=== PATIENT | male | born 1945 | race Caucasian/White ===

== ENCOUNTER 2018-06-01 12:25 | Emergency (ER) | payer OTHER ==
[2018-06-01 12:34] VITALS: BP 133/89
[2018-06-01] MEDS ORDERED: Ipratropium 0.5MG/2.5ML NEB* 0.5 MG/2.5 ML NEB.SOLN INH ONE (12:44)
[2018-06-01] MEDS ORDERED: Albuterol 2.5 MG/3 ML NEB.SOL* (0.083%) INH ONE (12:44)
[2018-06-01] MEDS ORDERED: Albuterol HFA INHALER* 8 gm MDI INH ONE (13:24)
[2018-06-01] MEDS ORDERED: predniSONE TAB* 20 MG PO ONE (13:25)
--- NOTE | 2018-06-01 13:28 | UC ---
Respiratory Complaint HPI - HPI Summary HPI Summary: The patient is a 72-year-old male with a remote history of asthma. Today he was trying to clean off some almaz books. Any attempted the vacuum them off his vacuum wallpaper cleaner opened up sprain dust around the room. He became acutely dyspneic after this occurred. He is much improved after taking some Zyrtec but still feels tight. - History of Current Complaint Chief Complaint: UCRespiratory Stated Complaint: ALLERGIC REACTION Time Seen by Provider: 06/01/18 12:37 Hx Obtained From: Patient Onset/Duration: Sudden Onset, Lasting Hours Timing: Constant Severity Initially: Severe Severity Currently: Moderate Pain Intensity: 0 Pain Scale Used: 0-10 Numeric Character: Cough: Nonproductive Aggravating Factors: Exertion, Deep Breaths Alleviating Factors: OTC Meds Associated Signs And Symptoms: Positive: Wheezing - Allergies/Home Medications Allergies/Adverse Reactions: Allergies Allergy/AdvReac Type Severity Reaction Status Date / Time No Known Allergies Allergy Verified 06/01/18 12:34 Home Medications: Home Medications metFORMIN* [Glucophage 850 MG TAB *] 1 tab PO DAILY 06/01/18 [History Confirmed 06/01/18] PMH/Surg Hx/FS Hx/Imm Hx Previously Healthy: Yes Endocrine History: Dyslipidemia - Surgical History Surgical History: Yes Surgery Procedure, Year, and Place: Heart cath 1990s. left leg surgery as a child for infection - Social History Alcohol Use: None Substance Use Type: None Smoking Status (MU): Never Smoked Tobacco Review of Systems Constitutional: Negative Skin: Negative Eyes: Negative ENT: Negative Respiratory: Shortness Of Breath, Cough Cardiovascular: Negative Gastrointestinal: Negative Genitourinary: Negative Motor: Negative Neurovascular: Negative Musculoskeletal: Negative Neurological: Negative Psychological: Negative Is Patient Immunocompromised?: No All Other Systems Reviewed And Are Negative: Yes Physical Exam Triage Information Reviewed: Yes Appearance: Well-Appearing, No Pain Distress, Well-Nourished Vital Signs: Initial Vital Signs Temp 99.9 F 06/01/18 12:30 Pulse 97 06/01/18 12:30 Resp 18 06/01/18 12:30 BP 133/89 06/01/18 12:30 Pulse Ox 97 06/01/18 12:30 Vital Signs Reviewed: Yes Eyes: Positive: Conjunctiva Clear ENT: Positive: Hearing grossly normal, Uvula midline. Negative: Nasal drainage , TMs normal, Trismus, Muffled voice, Hoarse voice Neck: Positive: Supple, Nontender Respiratory: Positive: No respiratory distress, No accessory muscle use, Wheezing - with forced expiration/poor air movement Cardiovascular: Positive: RRR, No Murmur Musculoskeletal: Positive: ROM Intact, No Edema Neurological: Positive: Alert Psychological Exam: Normal Skin Exam: Normal UC Diagnostic Evaluation - Laboratory O2 Sat by Pulse Oximetry: 97 - normal/not hypoxic Re-Evaluation - Re-Evaluation First Eval Re-Evaluation Time: 13:29 Change: Improved Comment: lungs clear/subjectively much improved Respiratory Course/Dx - Differential Dx/Diagnosis Provider Diagnoses: acute bronchospasm Discharge - Sign-Out/Discharge Documenting (check all that apply): Discharge/Admit/Transfer - Discharge Plan Condition: Stable Disposition: HOME Prescriptions: predniSONE [Deltasone 20 MG TAB] 40 mg PO DAILY #8 tab Patient Education Materials: Bronchospasm (ED) Referrals: Gene Mcbride MD [Primary Care Provider] - 1 Week Additional Instructions: recheck for new or worsening symptoms use inhaler as directed 2 puffs 4x day for 7 days - Billing Disposition and Condition Condition: STABLE Disposition: Home
== END 2018-06-01 13:45 | disposition home or self-care (01) ==
LOC: UCEAST 12:25
DX: J98.01 Acute bronchospasm (principal); J45.909 Unspecified asthma, uncomplicated
CPT/HCPCS: 99213; A9270-GY; G0463; J7512

== ENCOUNTER → 2019-01-30 13:55 | Emergency (ER) | payer OTHER ==
[~2019-01-30 13:55] MED LIST: Iodixanol* (CONTRAST) 320 MG/ML 100 ML SDV IV ONE; NS 0.9% 1000 ML** 1,000 ML IV ONE
--- NOTE | 2019-01-30 15:05 | ED ---
Neurological HPI - HPI Summary HPI Summary: Pt. is a 73 y.o male who presents to the ER for weakness to his left arm that started 1600 yesterday. Pt. states he was sitting, watching TV yesterday at 1600 when he felt his left arm "fall asleep." Pt. states he tried to lift up his left arm and it was very weak. Pt. states symptoms improved today but he still had mild weakness in left arm and saw his PCP who referred pt. to ED for further evaluation. Pt. denies vision changes, speech changes, H/A, SOB, fever , recent illness. Past medical hx of DM and HDL. Pt. takes a ASA 81mg on a daily basis. Symptoms are moderate in severity. No current modifying factors. - History of Current Complaint Chief Complaint: EDWeakness Stated Complaint: WEAKNESS Time Seen by Provider: 01/30/19 14:50 Hx Obtained From: Patient Pain Intensity: 3 - Allergy/Home Medications Allergies/Adverse Reactions: Allergies Allergy/AdvReac Type Severity Reaction Status Date / Time enviromental Allergy Eyes Uncoded 01/30/19 14:01 Itchy/Swollen/Red/Watery PMH/Surg Hx/FS Hx/Imm Hx Previously Healthy: Yes Endocrine/Hematology History: Reports: Hx Diabetes Cardiovascular History: Reports: Other Cardiovascular Problems/Disorders - high triglycerides Denies: Hx Hypertension Respiratory History: Reports: Hx Asthma - Not medicated for as child, Hx Sleep Apnea History: Reports: Hx Kidney Stones - minor - none now, Other Problems/ Disorders - current hematuria issue Denies: Hx Dialysis, Hx Renal Disease Sensory History: Reports: Hx Contacts or Glasses - glasses Denies: Hx Hearing Aid Opthamlomology History: Reports: Hx Contacts or Glasses - glasses - Surgical History Surgery Procedure, Year, and Place: Heart cath . left leg surgery as a child for infection,left arm Hx Anesthesia Reactions: No Infectious Disease History: No Infectious Disease History: Denies: Traveled Outside the [place] in Last 30 Days - Family History Known Family History: Positive: Non-Contributory - Social History Occupation: Employed Full-time Lives: With Family Alcohol Use: None Substance Use Type: Reports: None Smoking Status (MU): Never Smoked Tobacco Review of Systems Constitutional: Negative Negative: Fever, Chills Eyes: Negative Negative: Photophobia, Blurred Vision Cardiovascular: Negative Negative: Palpitations, Chest Pain Respiratory: Negative Negative: Shortness Of Breath, Cough Gastrointestinal: Negative Negative: Abdominal Pain, Vomiting, Diarrhea Genitourinary: Negative Positive: Other - weakness to left arm Skin: Negative Positive: Weakness. Negative: Headache, Paresthesia, Numbness, Syncope, Slurred Speech All Other Systems Reviewed And Are Negative: Yes Physical Exam Triage Information Reviewed: Yes Vital Signs On Initial Exam: Initial Vitals Temp Pulse Resp BP Pulse Ox 98.9 F 87 19 150/80 96 01/30/19 13:57 01/30/19 13:57 01/30/19 13:57 01/30/19 13:57 01/30/19 13:57 Vital Signs Reviewed: Yes Appearance: Positive: Well-Appearing - Pt. sitting up in bed in NAD. Answers questions appropriately. Skin: Positive: Warm, Dry Head/Face: Positive: Normal Head/Face Inspection Eyes: Positive: Normal, EOMI, FELIBERTO, Conjunctiva Clear Neck: Positive: Supple Respiratory/Lung Sounds: Positive: Clear to Auscultation, Breath Sounds Present Cardiovascular: Positive: Normal, RRR Musculoskeletal: Positive: Other - 5/5 strength in bilateral UEs and LEs. Slight drift of the left arm but does not fall to bed. No sensory deficits. Neurological: Positive: Sensory/Motor Intact - Very slight drift to left arm. Normal sensation, Alert, Oriented to Person Place, Time, CN Intact II-III, Normal Gait, Heel to Toe - normal, Finger to Nose - slightly off on left, Facial Symmetry, Speech Normal. Negative: Abnormal Gait, Receptive Aphasia, Expressive Aphasia, Cerebellar Dysfunction, Disoriented, Facial Droop, Slurred Speech, Dysphagia, Pronator Drift Present Psychiatric: Positive: Affect/Mood Appropriate - [place] Coma Scale Best Eye Response: 4 - Spontaneous Best Motor Response: 6 - Obeys Commands Best Verbal Response: 5 - Oriented Coma Scale Total: 15 Diagnostics - Vital Signs Vital Signs Temp Pulse Resp BP Pulse Ox 01/30/19 14:19 87 24 151/80 95 01/30/19 14:18 83 16 94 01/30/19 13:57 98.9 F 87 19 150/80 96 - Laboratory Result Diagrams: 01/30/19 15:21 01/30/19 15:21 Lab Statement: Any lab studies that have been ordered have been reviewed, and results considered in the medical decision making process. NIH Scale - NIH Scale Level of Consciousness: Alert/Keenly Responsive Ask Patient the Month and His/Her Age: Both Correct Ask Pt to Open/Close Eyes and Leather Currier/Release Non-Paretic Hand: Both Correctly Best Gaze (Only Horizontal Eye Movement): Normal Visual Field Testing: No Visual Loss Facial Paresis-Pt to Smile & Close Eyes or Grimace Symmetry: Normal/Symmetrical Motor Function - Right Arm: No Drift-Holds 10 Seconds Motor Function - Left Arm: Drifts LT 10 seconds Motor Function - Right Leg: No Drift-Holds 10 Seconds Motor Function - Left Leg: No Drift-Holds 10 Seconds Limb Ataxia-Must be out of Proportion to Weakness Present: Absent Sensory (Use Pinprick to Test Arms/Legs/Trunk/Face): Normal Best Language (Describe Picture, Name Items): No Aphasia Dysarthria (Read Several Words): Normal Extinction and Inattention: No Abnormality Total Score: 1 Course/Dx - Course Course Of Treatment: Pt. presenting with left arm weakness that started yesterday. NIHSS 1. Neurology was consulted, Dr. Stroud, who recommends ct brain and CTA head/neck (MRI not available on the weekends.) ECG done at 1533 shows a sinus rhythm of 84 bpm, normal axis, no ST elevation or depression. Labs unremarkable. 1635: Dr. Stroud examined pt. and reviewed imaging. He does not feel symtpoms are secondary to a CVA. Pt. does have left shoulder pain with movement. Pt. notes he has been doing a lot of push ups lately. Dr. Stroud feels symptoms are most likely stemming from a cervical impingement. Pt. prefers to be dc home and is earger to be dc. Dr. Stroud recommends dc home with medrol dose pack and doubling daily ASA dose. To f.u with PCP on Friday for further evaluation. To return to ER If sxs change or worsen. - Differential Dx Differential Diagnoses Neuro: Positive: Anxiety, Cerebrovascular Accident, Intracranial Bleed, Sprain, Transient Ischemic Attack - Diagnoses Provider Diagnoses: Arm weakness, Cervical nerve root impingement Discharge - Sign-Out/Discharge Documenting (check all that apply): Patient Departure Patient Received Moderate/Deep Sedation with Procedure: No - Discharge Plan Condition: Good Disposition: HOME Prescriptions: methylPREDNISolone [Medrol Dosepak 4 MG*] 0 mg PO .SEE BONITA INSTRUCTION #1 tab Patient Education Materials: Cervical Radiculopathy (ED), Weakness (ED) Referrals: Gene Mcbride MD [Primary Care Provider] - Additional Instructions: You were examined by Dr. Stroud today, neurologist, who does not feel your symptoms are secondary to a stroke Imaging of brain and neck are negative today Arm pain and weakness may be stemming from your neck Recommend doubling your daily aspirin dose Schedule a follow up appointment with your PCP ERNESTO for further evaluation and testing Take steroid pack as directed Return to ER if symptoms change or worsen - Billing Disposition and Condition Condition: GOOD Disposition: Home
[2019-01-30 15:32] LABS: ABS Basophils 0.1 10^3/ul (0-0.2); ABS Eosinophils 0.4 10^3/ul (0-0.6); ABS Lymphocytes 1.5 10^3/ul (1.0-4.8); ABS Monocytes 0.6 10^3/ul (0-0.8); ABS Neutrophils 2.9 10^3/ul (1.5-7.7); ABS Nucleated RBC 0 10^3/ul; Eosinophil % 8.1 %; Hematocrit 41 % (42-52); Hemoglobin 14.6 g/dl (14.0-18.0); Lymphocyte % 27.8 %; Mean Corpuscular HGB Conc 35 g/dl (31-36); Mean Corpuscular Hemoglobin 33 pg (27-31); Mean Corpuscular Volume 93 fL (80-94); Mean Platelet Volume 8.6 fL (7.4-10.4); Nucleated Red Blood Cells % 0.1; Platelet Count 172 10^3/ul (150-450); Red Blood Count 4.47 10^6/ul (4.00-5.40); Red Cell Distribution Width 13 % (10.5-15); White Blood Count 5.6 10^3/ul (3.5-10.8)
[2019-01-30 15:42] LABS: INR 0.96 (0.77-1.02)
[2019-01-30 15:48] LABS: Albumin 4.7 g/dL (3.2-5.2); Albumin/Globulin Ratio 1.7 (1-3); Calcium 10.8 mg/dL (8.6-10.3); EGFR African American 107.2 (>60); EGFR Non-African American 88.6 (>60); Globulin 2.7 g/dL (2-4); HDL Cholesterol 26.9 mg/dL; Magnesium 2.2 mg/dL (1.9-2.7); Total Bilirubin 0.5 mg/dL (0.2-1.0); Total Protein 7.4 g/dL (6.4-8.9)
[2019-01-30 15:50] LABS: Potassium 4.8 mmol/L (3.5-5.0)
[2019-01-30 16:18] LABS: TSH (Thyroid Stimulating Horm) 1.43 mcIU/mL (0.34-5.60)
[2019-01-30 16:48] LABS: Urine Appearance Cloudy; Urine Bacteria Absent (Absent); Urine Bilirubin Negative (Negative); Urine Blood Negative (Negative); Urine Color Yellow; Urine Glucose Negative (Negative); Urine Ketones Negative (Negative); Urine Nitrite Negative (Negative); Urine Protein Negative (Negative); Urine Red Blood Cell 2+(6-10/hpf) (Absent); Urine Specific Gravity 1.016 (1.010-1.030); Urine Urobilinogen Negative (Negative); Urine White Blood Cell 2+(11-20/hpf) (Absent)
[2019-01-30 18:23] VITALS: BP 140/85
--- NOTE | 2019-01-31 01:14 | CONS ---
CONSULTATION NOTE: DATE OF CONSULT: 01/30/19 - EMERGENCY DEPT CONSULTING PROVIDER: Dr. Coates/SAJAN Rivera. REASON FOR CONSULT: Left arm weakness. CHIEF COMPLAINT: Left shoulder pain with left proximal limb weakness. 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 The patient stated that he was in normal state of health yesterday on 01/29/19. He fell asleep on the cough watching TV with his neck flexed. He woke up around 10:30 p.m. and noticed left arm weakness. His arm was floppy. He was having trouble elevating the shoulder or flexing the elbows on the left. He did have associated symptoms of slight neck pain and shoulder pain. He fell asleep and woke up this morning with less severity of his symptoms. He is able to flex his arm but unable to contract his muscle. He has no problem with hand movements. He has no weakness in the hands. He denied any paresthesias. He denied any facial droop, vision disturbance, or swallowing difficulty. He denied any fasciculation. The patient went to his primary care doctor, who contacted me personally to discuss the case. I informed the primary care physician to immediately send the patient to the ER for further evaluation. Since being in the ED, the patient stated that his symptoms improved but he still has mild weakness. He had a CT of the head that showed no evidence of acute intracranial abnormality but he does have some ohty-db-[id number] degree of cerebellar atrophy. The patient denied any history of alcohol abuse. He had a CTA of the head and neck that showed no large vessel occlusion. On the CTA of the neck though, he does have multi-level degenerative disk disease with neuroforaminal narrowing, moderate on the right, mild on the left. There is no evidence of severe spinal stenosis. I informed the patient that he should be hospitalized for further evaluation with an MRI of the brain and neck to rule out stroke. He relate to me that it is a very busy week for him and he would prefer to do the workup as an outpatient. PAST MEDICAL HISTORY: Dyslipidemia, diabetes within less than 1 year, elevated parathyroid hormone, hypercalcemia. MEDICATIONS: 1. Vitamin D. 2. Niacin 250 mg b.i.d. 3. Multivitamin 1 cap p.o. b.i.d. 4. Gemfibrozil 600 mg p.o. b.i.d. 5. [place]-3. 6. Aspirin 81 mg daily. 7. Metformin 1 tablet by mouth daily. ALLERGIES: No known drug allergies. FAMILY HISTORY: No family history of stroke or seizures. 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 He denied any tobacco or alcohol use. He is and lives with his spouse. REVIEW OF SYSTEMS: A 14-point review of systems was obtained, otherwise negative except what was mentioned in the HPI. PHYSICAL EXAM: Vitals: Temperature of 98.9, heart rate of 91, respiratory rate of 14, oxygen saturation of 97, blood pressure is 140/84. General: Well- nourished, well-developed man who is overweight and in no acute distress. Head : Normocephalic, atraumatic. Eyes: Conjunctivae/corneas are clear. Neck is supple and symmetrical. No carotid bruit. No lymphadenopathy. He does have lipomas outside the paraspinal region. Lungs: Clear to auscultation bilaterally. Cardiovascular: Regular rate and rhythm with normal S1, S2. Extremities: Normal range of motion with no cyanosis. Skin: No skin lesions or laceration. Psych: Affect is broad and normal mood. Easy to establish rapport. Mental Status: Awake, alert, oriented to person, place, time, and general circumstance. Naming, repetition, and comprehensions were assessed and found to be normal. Cranial Nerves: Normal confrontation testing bilaterally. Pupils are mid range and reactive to light. Extraocular muscles are intact. No conjugate or asymmetrical nystagmus. Sensation is intact in the forehead, cheeks, and jaw region bilaterally. He has no facial droop, face is symmetric while smiling. He is able to hear throughout the history process. Symmetrical palate elevation. Normal strength against shoulder shrug except for slight weakness to shoulder shrug on the left. No winging of the scapula. Tongue is symmetric and midline with no atrophy or fasciculation. Motor Examination: He has no abnormal movement with mild left pronator drift but it is not an upper motor neuron pronator drift. It is more of a drift due to proximal weakness of the limb. Normal bulk and tone throughout. No fasciculation. He has neck extension that is 5/5. Shoulder range of motion is full. Shoulder abduction is 5/4, elbow flexion 5/4, elbow extension 5/4, wrist flexion and extension 5/5 , finger flexion and extension 5/5, abduction 5/4. Hip flexion 5/5, abduction 5 /5, knee flexion and extension 5/5, ankle dorsiflexion and plantar flexion 5/5, great toe extension is 5/5. Reflexes right/left, brachioradialis 1/2, biceps 1/ 2, triceps 1/2, patella trace/trace, ankle 0/0, plantar flexor/flexor. Sensation is intact throughout with increase in sensation in the dermatomal distribution of C5-C6 on the left compared to the right. The patient is known to have chronic pain in the neck region, occasionally radiating to the right upper extremity. Coordination: Normal [id number] and rapid alternating movement. Gait and station: Narrow based, normal stance and gait. No ataxia. ASSESSMENT AND RECOMMENDATION: Mr. Nazario Gan is a 73-year-old man with a history of diabetes, who had a new onset left arm weakness after he fell asleep with neck flexion sitting on the cough watching television. The patient's symptoms are improving. He has weakness predominantly in the C5-C6 myotome on the left or possibly the upper trunk of the lumbar plexus. I have a very low suspicion for a central process given the lack of involvement of the face with no other bulbar symptoms and the patient's weakness is predominantly proximal in the upper extremity. We discussed that MRIs are not available on the weekend and I do not think this is urgent enough to call the MRI team to obtain an MRI of the brain and C-spine and the patient agrees. The patient prefers not to do any workup as an inpatient and to do the MRIs as an outpatient. Therefore, I recommend obtaining an MRI of the brain without contrast as well as the MRI of the cervical spine without contrast for further evaluation. If the MRI of the brain and C-spine are negative, then I would move forward with obtaining an MRI of the brachial plexus with and without contrast. I can follow up with the patient within 1 week at the outpatient neurology clinic. I will have our staff contact the patient for further evaluation. I did inform the patient that if the MRI of the brain was positive for stroke, which I highly doubt, he should obtain an echo for further evaluation and to evaluate the etiology of the stroke. The patient verbalized understanding. He knows the treatment if he has a cervical cord or radiculopathy related injury, then physical therapy and evaluation by a neurosurgeon will be warranted at that time. We can start the patient on a Medrol Dosepak for 7 days to help reduce any inflammation for possible cervical radiculopathy or brachial plexopathy. He needs to closely monitor his blood sugar regularly. I also added vitamin B12 and CK to the labs. I educated and counseled the patient regarding the importance of coming back to the ER if he develops any new symptoms such as headaches, slurred speech, swallowing difficulty, new weakness, progressive weakness, or falls. The patient and his spouse verbalized understanding. They are very grateful that they do not have to be admitted to the hospital. I discussed the plan with Rico, who also agreed with the assessment. TIME SPENT: I spent more than 70 minutes obtaining history, examining the patient, education counseling, and discussing the treatment plan as mentioned above. [id number]/[facility] #: [id number] SHAVONNE
== END | disposition home or self-care (01) ==
LOC: ED 13:55
DX: R53.1 Weakness (principal); M54.12 Radiculopathy, cervical region; Z87.442 Personal history of urinary calculi; Z79.82 Long term (current) use of aspirin; E78.5 Hyperlipidemia, unspecified; E11.9 Type 2 diabetes mellitus without complications
CPT/HCPCS: 36415; 70450; 70496; 70498; 71045; 80053; 80061; 81003; 81015; 82550; 82607; 83605; 83721; 83735; 84443; 84484; 85025; 85610; 86850; 86900; 86901; 87086; 93005; 99283; Q9967

== ENCOUNTER → 2019-04-30 06:33 | Day surgery (SDC) | payer OTHER ==
--- NOTE | 2019-04-06 15:47 | HP ---
CC: Dr. Mcbride; Dr. Spears * ADMISSION HISTORY AND PHYSICAL: DATE OF ADMISSION: 04/30/[address] - [facility] ATTENDING SURGEON: Dr. Erendira Baez.* (DICTATED BY SAJAN VALLECILLO) CHIEF COMPLAINT: Hyperparathyroidism. HISTORY OF PRESENT ILLNESS: This is a 73-year-old male who was noted on routine lab work to have hypercalcemia. This was first noted in the past year. His serum calcium levels have been consistently elevated on repeat evaluation. PTH on 07/25/18 was high normal despite an elevated calcium of 11. Subsequent PTH was elevated at 9.9 (upper limit of normal 9.3) on 11/05/18 with an elevated serum calcium of 10.6 at that time. He was seen and evaluated by Dr. Spears and did undergo cinacalcet suppression, which did result in decreased serum calcium. Other causes of hyperparathyroidism have been ruled out. An ultrasound on 08/04/18 showed a 8 x 4 x 4 mm complex cystic and solid nodule in the inferior lobe of the left thyroid, but no lesions to account for enlarged parathyroid glands. Likewise, a nuclear medicine SPECT scan on did not show evidence of a hyperactive parathyroid gland. CT scan on did show increased uptake in the right upper pole parathyroid with the gland measuring 4 x 4 x 4 mm and with hypervascularity with rapid washout, felt to be consistent with a parathyroid adenoma. The patient does have a history of nephrolithiasis. He was seen by Dr. Baez on 12/16/18. She reviewed his workup and recommended parathyroidectomy. He understands the expected perioperative course including the potential necessity for 4-gland exploration. He would like to proceed as scheduled with parathyroidectomy. PAST MEDICAL HISTORY: Type 2 diabetes, nephrolithiasis, BPH, hypertriglyceridemia, obstructive sleep apnea (on chronic CPAP). PAST SURGICAL HISTORY: Includes ORIF of left forearm fracture, excision and drainage of what sounds like an infected hematoma of the left lower extremity as a child. No reported surgical or anesthesia complications. CURRENT MEDICATIONS: 1. Metformin 500 mg b.i.d. 2. Tamsulosin 0.4 mg b.i.d. 3. Fish oil 1200 mg b.i.d. 4. Aspirin 81 mg once daily (he will hold preoperatively as of today). 5. Multivitamin once daily. 6. Niacin 250 mg 2 tablets once daily. 7. Gemfibrozil 600 mg b.i.d. 8. Glucosamine and chondroitin daily. ALLERGIES: None known. FAMILY HISTORY: Negative for endocrine problems including malignancy. Also, negative for anesthesia problem, bleeding or clotting disorders as far as the patient is aware. SOCIAL HISTORY: The patient is . 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 He denies use of tobacco or alcohol or recreational drugs. REVIEW OF SYSTEMS: General: No recent constitutional symptoms or acute illnesses (he states that his weight is down about 10 pounds over the past 6 to 12 months intentionally). He does report ED visit a few months ago related to left upper extremity weakness. This was apparently related to regional compression from sleep position and resolved on its own. Workup at that time was concerning for stroke, which was ruled out. HEENT: No problems reported. Cardiovascular: No history of cardiovascular disease. He denies any chest pain , palpitation, or history of heart murmur. Respiratory: No history of asthma, chronic cough, or shortness of breath. GI: No problems reported. Colonoscopy done approximately 3 years ago reportedly normal. : History of BPH. No recent changes. Endocrine: History of type 2 diabetes. No history of thyroid disease. Hyperparathyroidism as per the HPI. PHYSICAL EXAMINATION GENERAL: Well-nourished, well-developed male in no acute distress. VITAL SIGNS: Height 6 feet 2 inches, weight 217 pounds, BMI 27.9. Temperature 98.9, blood pressure 112/64, pulse 78. HEENT: He has bilateral hearing aids. Pupils are equal, round, and reactive. EOMs intact. No conjunctival pallor. Oropharynx: Teeth in good repair. No intraoral lesions. NECK: No lymphadenopathy, thyromegaly, or masses. LUNGS: Clear to auscultation. No rales or wheezes. HEART: Regular rate and rhythm. No murmur noted. ABDOMEN: Soft, nontender to palpation. No palpable masses or organomegaly. GENITALIA: Not examined. RECTAL: Not done. BACK: No spinous process or CVA tenderness. EXTREMITIES: No edema. NEUROLOGIC: Grossly intact. SKIN: Warm and dry. No suspicious rashes or lesions noted. IMPRESSION: Hyperparathyroidism. PLAN: Parathyroidectomy. SAJAN VALLECILLO [id number]/[facility] #: [id number] SHAVONNE
[~2019-04-30 06:33] MED LIST changes: +Buffered Lidocaine 1% SYRIN* 1 ML/SYRINGE INTRADERM ONE; +Bupivacaine 0.25% SDV PF* 10 ML VIAL INJ ONE; +Dexamethasone IV* 4 MG/ML 1 ML (4 MG) ONE; +Ibuprofen TAB* 600 MG ONE; -Iodixanol* (CONTRAST) 320 MG/ML 100 ML SDV IV ONE; +Lactated Ringers 1000 ML Bag* 1,000 ML IV SCH; +Lidocaine 1% INJ* 10 MG/ML 30 ML SDV ONE; +Midazolam* 1 MG/ML 2 ML VIAL (2 MG) ONE; -NS 0.9% 1000 ML** 1,000 ML IV ONE; +Naloxone* 0.4 MG/ML 1 ML VIAL IV PRN; +Ondansetron INJ* 2 MG/ML VIAL IV PRN; +Propofol* 10 MG/ML 20 ML BTL ONE; +Succinylcholine* 20 MG/ML 10 ML VIAL ONE; +fentaNYL* 50 MCG/ML 2 ML VIAL (100 MCG VIAL) IV PRN; +fentaNYL* 50 MCG/ML 2 ML VIAL (100 MCG VIAL) ONE; +oxyCODONE/Acetamin 5/325 MG* TAB PO PRN
--- NOTE | 2019-04-30 13:14 | OP ---
CC: Dr. Mcbride; Dr. Spears OPERATIVE REPORT: DATE OF OPERATION: 04/30/19 DATE OF : 47 SERVICE: General Surgery. PRIMARY CARE PHYSICIAN: Dr. Mcbride. THIRD OFFICER: Dr. Spears. ATTENDING SURGEON: Erendira Baez MD HITTING COACH: Stephanie Richards MD ANESTHESIOLOGIST: Nabil Suazo MD ANESTHESIA: General endotracheal anesthesia. PRE-OP DIAGNOSIS: Primary hyperparathyroidism POST-OP DIAGNOSIS: Primary hyperparathyroidism OPERATIVE PROCEDURE: focused right upper parathyroidectomy ESTIMATED BLOOD LOSS: Minimal, less than 10 cc. SPECIMEN: Right upper parathyroid. INDICATIONS FOR SURGERY: Mr. Gan is a very pleasant 73-year-old gentleman with history of primary hyperparathyroidism and kidney stones. Therefore, he met criteria for a parathyroidectomy. He understood the risks, benefits, and alternatives of the procedure and he wished to proceed. Of note prior to surgery, his imaging studies showed a right upper parathyroid adenoma on the 4D CT scan although his nuclear medicine sestamibi scan and ultrasound studies were negative. DESCRIPTION OF PROCEDURE: The patient was brought back to the operating room and placed on the operating table in a supine position. Sequential compression devices were placed in the bilateral lower extremities for DVT prophylaxis. No antibiotics were administered. General endotracheal anesthesia was induced. The patient's arms were tucked and his neck was placed in extended position. The electrodes from the nerve monitor were attached. Prior to administrating local anesthesia to the neck, a time-out was performed, verifying the patient's name, MR number, and the procedure to be performed. 1% lidocaine and 0.25% Marcaine was infiltratred subcutaneously to the anterior neck. Next, the neck was prepped and draped in normal sterile fashion. Of note, prior to beginning the procedure, a baseline PTH level had been drawn in the preoperative holding area. Next, an additional time-out was performed, verifying the patient's name , MR number, and the procedure to be performed. An approximately 3.5 cm transverse incision was made at the midline neck, 2 fingerbreadths above the sternal notch in a natural skin crease that had been previously marked. The skin was divided down to the subcutaneous tissue. The platysma was divided and then inferior and superior subplatysmal flaps were developed superiorly towards the thyroid cartilage and inferiorly towards the clavicle. Next, the median raphe between the strap muscles was identified and divided down to the isthmus of the thyroid. Once this was identified, the thyroid itself was noted to be somewhat fibrotic and slightly heterogenous. Given that the patient had preoperative localization studies identifying right upper adenoma, attention was turned to the right lobe of the thyroid and the strap muscles were retracted laterally off of the thyroid lobe. The space just lateral to this thyroid gland was identified and the middle thyroid vein was identified and divided. The right thyroid lobe was retracted medially and up and out of the neck. The right upper parathyroid was located very posteriorly near the tracheoesophageal groove. It was adenomatous in appearance and dissected off its surrounding fascia. Once this was done, the adenoma was isolated on its vascular pedicle, which was then divided. The adenoma was opened and confirmed to be parathyroid tissue. At this point, the T0, T5 and T10 PTH laboratory values were obtained and sent the lab for evaluation. They returned as baseline of 101.7, T0 was 57.8, T5 was 26.3, and T10 was 20.7. Given that this met [place] criterion, the procedure was completed. Hemostasis was obtained in the right lateral neck and Tisseel was placed. The strap muscles were reapproximated using interrupted 3-0 Vicryl sutures. The platysma was reapproximated using 3-0 Vicryl sutures. The skin was closed using a running 4- 0 Prolene suture. Sterile dressing was placed and the patient's anesthesia was reversed. He was taken to the PACU in stable condition. At the end of the case , all counts were correct and I was present during the entirety of the case. [id number]/[facility] #: [id number] SHAVONNE
[2019-04-30 16:00] VITALS: BP 127/76
== END | disposition home or self-care (01) ==
LOC: OR 06:33
PROVIDERS: ATTEND Surgery
DX: E21.0 Primary hyperparathyroidism (principal); D35.1 Benign neoplasm of parathyroid gland; N20.0 Calculus of kidney; E11.9 Type 2 diabetes mellitus without complications; Z79.84 Long term (current) use of oral hypoglycemic drugs; G47.33 Obstructive sleep apnea (adult) (pediatric); E78.1 Pure hyperglyceridemia
CPT/HCPCS: 36415; 83970; 88305; A9270-GY; C1776; J0330; J1100; J2250; J2704; J3010; J3490

== ENCOUNTER 2019-07-08 07:30 | Emergency (ER) | payer OTHER ==
[2019-07-08 07:43] VITALS: BP 137/72
--- NOTE | 2019-07-08 08:35 | UC ---
Skin Complaint HPI - HPI Summary HPI Summary: 73 yo male with extremely pruritic rash x days Just finished aumentin for Left ear infection - History of Current Complaint Chief Complaint: UCSkin Time Seen by Provider: 07/08/19 08:34 Stated Complaint: RASH Onset/Duration: Gradual Onset, Lasting Days Timing: Constant Onset Severity: Mild Current Severity: Moderate Pain Intensity: 0 Pain Scale Used: 0-10 Numeric Location: Diffuse Character: Pruritus, Redness Aggravating Factor(s): Touch Alleviating Factor(s): Nothing Associated Signs & Symptoms: Positive: Rash Related History: Recent change in medication - Allergy/Home Medications Allergies/Adverse Reactions: Allergies Allergy/AdvReac Type Severity Reaction Status Date / Time amoxicillin [From Augmentin] Allergy Rash Verified 07/08/19 08:45 clavulanic acid Allergy Rash Verified 07/08/19 08:45 [From Augmentin] enviromental Allergy Eyes Uncoded 07/08/19 07:43 Itchy/Swollen/Red/Watery PMH/Surg Hx/FS Hx/Imm Hx Endocrine History: Diabetes, Dyslipidemia Cardiovascular History: Hypertension - pre - Surgical History Surgical History: Yes Surgery Procedure, Year, and Place: Heart cath . left leg surgery as a child for infection,. left arm, 2017. parathyroidectomy - Family History Known Family History: Positive: Non-Contributory - Social History Alcohol Use: None Substance Use Type: None Smoking Status (MU): Never Smoked Tobacco Review of Systems All Other Systems Reviewed And Are Negative: Yes Constitutional: Positive: Negative Skin: Positive: Rash Eyes: Positive: Negative ENT: Positive: Negative Respiratory: Positive: Negative Cardiovascular: Positive: Negative Gastrointestinal: Positive: Negative Genitourinary: Positive: Negative Motor: Positive: Negative Neurovascular: Positive: Negative Musculoskeletal: Positive: Negative Neurological: Positive: Negative Psychological: Positive: Negative Physical Exam Triage Information Reviewed: Yes Appearance: Well-Appearing, No Pain Distress, Well-Nourished Vital Signs: Initial Vital Signs Temp 98.7 F 07/08/19 07:35 Pulse 86 07/08/19 07:35 Resp 16 07/08/19 07:35 BP 137/72 07/08/19 07:35 Pulse Ox 95 07/08/19 07:35 Vital Signs Reviewed: Yes Eyes: Positive: Conjunctiva Clear ENT: Positive: TMs normal. Negative: Hearing grossly normal, Trismus, Muffled voice, Dental tenderness, Sinus tenderness, Uvula midline Neck: Positive: Supple, Nontender, No Lymphadenopathy Respiratory: Positive: Lungs clear, Normal breath sounds, No respiratory distress, No accessory muscle use Cardiovascular: Positive: RRR Musculoskeletal: Positive: ROM Intact, No Edema Neurological: Positive: Alert Skin: Positive: Rashes - red macular rash/diffuse + dermatographia Course/Dx - Diagnoses Provider Diagnosis: Drug eruption Discharge - Sign-Out/Discharge Documenting (check all that apply): Patient Departure All imaging exams completed and their final reports reviewed: No Studies - Discharge Plan Condition: Stable Disposition: HOME Prescriptions: Fexofenadine (NF) [Gris (NF)] 60 mg PO BID PRN #10 tab PRN Reason: Itching predniSONE [Deltasone 20 MG TAB] 40 mg PO DAILY #8 tab Patient Education Materials: Urticaria (ED), Cold Compress or Soak (ED) Referrals: Gene Mcbride MD [Primary Care Provider] - If Needed (as planned) Additional Instructions: your ear looks great I suspect this is a drug eruption due to AUGMENTIN - Billing Disposition and Condition Condition: STABLE Disposition: Home
[2019-07-08] MEDS ORDERED: predniSONE TAB* 20 MG PO ONE (08:42)
== END 2019-07-08 08:54 | disposition home or self-care (01) ==
LOC: UCEAST 07:30
DX: L27.0 Generalized skin eruption due to drugs and medicaments taken internally (principal); E11.9 Type 2 diabetes mellitus without complications; E78.5 Hyperlipidemia, unspecified
CPT/HCPCS: 99212; G0463; J7512